=== PATIENT | female | born 1980 | race Caucasian/White ===

== ENCOUNTER 2019-06-08 07:27 | Emergency (ER) | payer SELFPAY ==
[~2019-06-08] VITALS: Ht 167.6 cm; Wt 89.4 kg
[~2019-06-08 07:27] MED LIST: CHOL20001 PO
[2019-06-08 07:41] VITALS: BP 110/72
--- NOTE | 2019-06-08 07:48 | NUR ---
39/f BIB SELF c/o rash whole body& KNEES & HANDS PAIN x yesterday. took benadryl at 1 am today.DENIES N/V/D; SKIN IS PINK/WARM/DRY; AAOX4 WITH EVEN AND STEADY GAIT; LUNGS CLEAR BL; HR EVEN AND REGULAR; PT DENIES ANY FEVER, CP, SOB, OR COUGH AT THIS TIME; PATIENT STATES PAIN OF 5/10 AT THIS TIME. PATIENT POSITIONED FOR COMFORT; HOB ELEVATED; BEDRAILS UP X1; BED DOWN. ER MADE AWARE OF PT STATUS. Addendum: 06/08/19 at 0757 by [facility] ate [place] yesterday
[2019-06-08] MEDS ORDERED: DEXAMETHASONE 10 MG/ML VIAL IM ONE (08:00)
[2019-06-08] MEDS ORDERED: diphenhydrAMINE 50 MG/ML VIAL IM ONE (08:00)
[2019-06-08] MEDS ORDERED: EPINEPHrine 1:1000 - 1 MG/ML AMP SUBQ ONE (08:00)
[2019-06-08] MEDS ORDERED: FAMOTIDINE 20 MG TAB PO ONE (08:00)
[2019-06-08] MEDS ORDERED: hydrOXYzine HCL 25 MG TAB PO ONE (08:00)
--- NOTE | 2019-06-08 08:35 | NUR ---
Patient being reevaluated by DR XIE at bedside.
--- NOTE | 2019-06-08 09:12 | NUR ---
PATIENT DENIES PAIN AT THIS TIME.Patient appears to be resting comfortably in bed. Vital Signs within normal limits. Respirations even and unlabored. WILL CONTINUE TO MONITOR.
--- NOTE | 2019-06-08 09:53 | NUR ---
Tyrell navarro in ED - 06/08/19 at 0958 by [email or web address] AMB TO [facility] & WAIT FOR DC.
--- NOTE | 2019-06-08 09:58 | NUR ---
AMB TO [facility] & WAIT FOR DC.
--- NOTE | 2019-06-08 10:04 | NUR ---
Patient discharged with v/s stable. Written and verbal after care instructions given and explained. Patient alert, oriented and verbalized understanding of instructions. Ambulatory with steady gait. All questions addressed prior to discharge. ID band removed. Patient advised to follow up with PMD. Rx of PREDNISONE, ATARAX, ATARX given. Patient educated on indication of medication including possible reaction and side effects. Opportunity to ask questions provided and answered.
[2019-06-08 10:05] VITALS: BP 109/58
== END 2019-06-08 10:06 | disposition home or self-care (01) ==
LOC: MED 07:27
DX: T78.1XXA Other adverse food reactions, not elsewhere classified, initial encounter (principal); L50.9 Urticaria, unspecified; J45.909 Unspecified asthma, uncomplicated; Z79.899 Other long term (current) drug therapy; X58.XXXA Exposure to other specified factors, initial encounter
CPT/HCPCS: 96372; 99283; J0171; J1100; J1200